=== PATIENT | male | born 1995 | race African-American/Black ===

== ENCOUNTER 2019-04-24 20:04 | Emergency (ER) | payer BC ==
[~2019-04-24] VITALS: Ht 195.6 cm; Wt 106.6 kg
[2019-04-25 00:43] VITALS: BP 143/74
== END 2019-04-25 00:43 | disposition home or self-care (01) ==
LOC: ED 20:04
DX: M25.572 Pain in left ankle and joints of left foot (principal)
CPT/HCPCS: Q0162